=== PATIENT | female | born 1970 | race Caucasian/White ===

== ENCOUNTER 2019-04-17 10:58 | Inpatient (IN) | payer SELFPAY ==
--- NOTE | 2019-04-17 12:02 | RAD ---
EXAM: XR Elbow Rt 4 View STANDARD DATE: 04/17/2019 11:37 AM INDICATION: Right elbow pain COMPARISON: Right forearm radiograph dated April 17, 2019 FINDING: Patient's known radial neck fracture is not as well detailed on the current examination due to an overlying fiberglass splint. Radiocapitellar alignment appears within normal limits. IMPRESSION:Limited exam due to overlying fiberglass splint. Patient's previously demonstrated radial neck fracture is not as well detailed on the current study. Radiocapitellar alignment appears within normal limits.
--- NOTE | 2019-04-17 12:04 | RAD ---
EXAM: XR Wrist 3 Rt View STANDARD DATE: 04/17/2019 11:38 AM INDICATION: Right wrist fracture COMPARISON: Prior right forearm radiographs dated 04/17/2019 FINDING: Comminuted dorsally impacted distal radius fracture is unchanged in position. There is been interval placement of an overlying fiberglass splint. IMPRESSION:Comminuted, dorsally impacted, intra-articular distal radius fracture is unchanged in posi tion.
[2019-04-17] MEDS ORDERED: Morphine 4 MG/ML VIAL ONE (12:59)
[2019-04-17] MEDS ORDERED: Ondansetron PF 4 MG/2 ML Vial ONE ×2 (12:59→15:00)
[2019-04-17] MEDS ORDERED: hydrALAZINE 20 MG/ML VIAL SLOW IVP PRN (13:08)
[2019-04-17] MEDS ORDERED: HumaLOG 300 UNITS/3 ML VIAL SC PRN (13:08)
[2019-04-17] MEDS ORDERED: Dextrose 5% in Water 1,000 ML IV PRN (13:08)
[2019-04-17] MEDS ORDERED: Ondansetron ODT 4 MG TAB PO PRN (13:08)
[2019-04-17] MEDS ORDERED: Promethazine HCl 25 MG/ML VIAL IM PRN ×2 (13:08→17:37)
[2019-04-17] MEDS ORDERED: Dextrose 50% Abboject 50 ML SYRINGE SLOW IVP PRN (13:08)
[2019-04-17] MEDS ORDERED: traMADol HCl 50 MG TAB PO PRN (13:13)
[2019-04-17] MEDS ORDERED: traMADol HCl 50 MG TAB PO SCH (13:15)
[2019-04-17] MEDS ORDERED: Cyclobenzaprine 10 MG TAB PO SCH (13:15)
[2019-04-17] MEDS ORDERED: Acetaminophen 500 MG TAB PO SCH (13:15)
--- NOTE | 2019-04-17 13:37 | RAD ---
PORTABLE CHEST: Date: 04/17/19 HISTORY: Preop. FINDINGS: Lungs are clear. Heart and mediastinum appear normal. Vascular markings normal. IMPRESSION: Unremarkable chest. POS: [facility]
[2019-04-17 13:58] LABS: #Eosinphils 0.1 thou/uL (0.0-0.7); #Lymphocytes 1.5 thou/uL (1.20-3.40); #Monocytes 0.4 thou/uL (0.11-0.59); #Neutrophils 8.6 thou/uL (1.40-6.50); %Basophils 0.3 % (0.0-1.0); %Eosinophils 0.7 % (0.0-10.0); %Monocytes 3.9 % (0.0-10.0); %Neutrophils 81.1 % (42.0-75.0); Hemoglobin 12.6 g/dL (12.0-16.0); Mean Corpuscular HGB CONC 34.9 g/dL (32.0-36.0); Mean Corpuscular Volume 88.8 fL (78.0-98.0); Mean Platelet Volume 9.5 fL (7.4-10.4); Platelet Count 173 thou/uL (130-400); Red Blood Cell (RBC) Count 4.06 mill/uL (4.20-5.40); White Blood Cell (WBC) Count 10.5 thou/uL (4.8-10.8)
[2019-04-17] MEDS ORDERED: Ibuprofen 600 MG TAB PO SCH (14:00)
[2019-04-17 14:04] LABS: PTT 28.6 SEC (22.9-36.1); Prothrombin Time 13.1 SEC (12.0-14.7)
[2019-04-17 14:19] LABS: ALT (SGPT) 33 U/L (8-55); AST (SGOT) 26 U/L (5-34); Albumin 4.2 g/dL (3.5-5.0); Alkaline Phosphatase 86 U/L (40-150); Anion Gap 12 mmol/L (10-20); BUN (Urea Nitrogen) 11 mg/dL (7.0-18.7); Bilirubin, Total 0.4 mg/dL (0.2-1.2); Calc. Creatinine Clearance 0 mL/min (70-130); Calcium 9.3 mg/dL (7.8-10.44); Carbon Dioxide 23 mmol/L (22-29); Chloride 106 mmol/L (98-107); Estimated GFR-MDRD 85; Globulin 2.5 g/dL (2.4-3.5); Glucose 98 mg/dL (70-105); Potassium 3.8 mmol/L (3.5-5.1); Protein, Total 6.7 g/dL (6.0-8.3); Sodium 137 mmol/L (136-145)
[2019-04-17] MEDS ORDERED: Ketorolac Tromethamine 30 MG/ML VIAL ONE (15:00)
[2019-04-17] MEDS ORDERED: diphenhydrAMINE 50 MG/ML VIAL ONE (15:00)
[2019-04-17] MEDS ORDERED: Lidocaine 2% PF 5 ML VIAL ONE (15:00)
[2019-04-17] MEDS ORDERED: PHENYLEPHRINE-NS 100 MCG/ML 10 ML SYRINGE ONE (15:00)
[2019-04-17] MEDS ORDERED: PROPOFOL 200 MG/20 ML VIAL ONE (15:00)
[2019-04-17] MEDS ORDERED: Morphine 2 MG/ML SYRINGE ONE (15:26)
[2019-04-17] MEDS ORDERED: Midazolam HCl 2 mg/2 ml Vial ONE ×2 (15:26→15:27)
[2019-04-17] MEDS ORDERED: Fentanyl 100 MCG/2 ML VIAL ONE (15:27)
[2019-04-17] MEDS ORDERED: Neomycin-Polymyxin 1 ML AMP ONE (16:09)
[2019-04-17] MEDS ORDERED: Bupivacaine HCl 0.5%/Epinephrine 1:200,000/PF 30 ml Vial ONE (16:39)
--- NOTE | 2019-04-17 17:31 | RAD ---
Intraoperative, fluoroscopic imaging, right elbow, 2 views CLINICAL HISTORY: Surgical evaluation of elbow fracture FINDINGS: Magnified intraoperative fluoroscopic imaging reveals grossly stable alignment of the previ ously mentioned slightly angulated radial neck fracture. IMPRESSION: Intraoperative fluoroscopic imaging for evaluation of right radial fracture.
[2019-04-17] MEDS ORDERED: Promethazine HCl 25 MG/ML VIAL SLOW IVP PRN (17:37)
[2019-04-17] MEDS ORDERED: Meperidine HCl/PF 25 MG/ML VIAL SLOW IVP PRN (17:37)
[2019-04-17] MEDS ORDERED: Ondansetron HCl/PF 4 MG/2 ML Vial IVP PRN (17:37)
--- NOTE | 2019-04-17 17:59 | RAD ---
RIGHT WRIST THREE VIEWS: 04/17/19 INDICATION: Interval ORIF of right wrist. COMPARISON: Prior exam dated 04/17/19. FINDINGS: Since the comparison examination there has been interval placement of a low profile locked plate and screw construct fixating the intra-articular distal radius fracture. Fracture alignment is near anato ruchi. Instrumentation projects in the expected position without gross evidence of complication. IMPRESSION: ORIF of right wrist fracture. POS: [facility]
--- NOTE | 2019-04-17 18:05 | HP ---
HISTORY OF PRESENT ILLNESS: The patient presents to the ER after a fall and pain of right wrist. The patient states that she was on a the back of her truck , and she was trying to reach a tree. The branch of the tree was broken, she fell down on the right wrist. She did not hit her head. No LOC. No other injury reported. PAST MEDICAL HISTORY: No known medical history. PAST SURGICAL HISTORY: Tubal ligation in 2005. SOCIAL HISTORY: Smoking none. Alcohol none. Drug use none. ALLERGIES: NO KNOWN ALLERGIES. Last meal at 7 am PHYSICAL EXAMINATION: GENERAL: The patient is alert and awake. No signs of distress. SKIN: Warm and pink. VITAL SIGNS: Stable. Blood pressure 120/80, heart rate 80, O2 saturation 98%, respiratory rate 16. LUNGS: Clear bilaterally. HEART: Regular rate and rhythm. ABDOMEN : Soft, nondistended, no rebound. EXTREMITIES: Upper extremity, right wrist was on splint. Pain is well controlled. Left arm range of motion is normal. Both lower extremities range of motion is normal. There are no obvious injury, but no pain to touch. Normal alignment. NEUROLOGIC: No neurologic deficits. DIAGNOSES: Right closed distal radial fracture,comminuted. PLAN: Dr. Coley plan to do open reduction and internal fixation of the right wrist today. Job ID: [id number] [facility]
[2019-04-17] MEDS ORDERED: Senokot S 8.6-50 MG TAB PO SCH (21:00)
[2019-04-17] MEDS ORDERED: Famotidine 20 MG TAB PO SCH (21:00)
--- NOTE | 2019-04-18 00:29 | OP ---
DATE OF PROCEDURE: 04/17/2019 PREOPERATIVE DIAGNOSIS: Comminuted displaced intra-articular fracture of the right distal radius. POSTOPERATIVE DIAGNOSIS: Comminuted displaced intra-articular fracture of the right distal radius. PROCEDURE PERFORMED: Open reduction and internal fixation of right distal radius. ANESTHESIA: General. TECHNIQUE: The patient was given preoperative IV antibiotics, taken to operating room, and placed in supine position. Satisfactory general anesthesia was performed. The right upper extremity was sterilely prepped and draped in usual fashion. After exsanguination, tourniquet was raised to 220 mmHg over the right arm. A longitudinal incision was made over the volar aspect of the wrist over the flexor carpi radialis tendon. Blunt and sharp dissection was made. The flexor carpi radialis tendon was retracted ulnarly. The other soft tissue was retracted medially. Periosteal elevation was performed on the volar aspect of the distal radius. The fracture was reduced. Good reduction was verified with C-arm. A three-hole volar distal radius Synthes plate was then inserted using 2.7 cortical screw initially in the metaphysis, then five 2.4 locking screws distally and two 2.4 locking screws in the shaft. This was all performed under fluoroscopic visualization using C-arm. This verified good position of the plate and screws and good reduction of the fractures of the distal radius. The wound was then copiously irrigated with antibiotic solution and was closed using 2-0 Vicryl for the fat and subcutaneous tissue and the skin was closed with 3-0 Rapide. The wound was then infiltrated with 20 mL of 0.5% Marcaine with epinephrine. Sterile dressing was applied along with a 3-inch Ortho-Glass splint. The tourniquet was then released. The C-arm was also used to examine the right elbow and proximal forearm for making sure there were no acute fractures and there were not. There were no arthritic changes in the right elbow. No bony abnormalities and no acute fractures. The patient was then awakened, extubated, and transferred to recovery room in stable condition. ESTIMATED BLOOD LOSS: Minimal. COMPLICATIONS: None. DISCHARGE MEDICATION: Tylenol No. 4 one every 4 to 6 hours as needed for pain, #40 with one refill. TOURNIQUET TIME: 40 minutes. Job ID: [id number]
[2019-04-18] MEDS ORDERED: Polyethylene Glycol 3350 17 GM Packet PO SCH (09:00)
[2019-04-18] MEDS ORDERED: Enoxaparin Sodium 40 MG/0.4 ML SYRINGE SC SCH (21:00)
--- NOTE | 2019-04-19 11:47 | PRG ---
DATE OF SERVICE: 04/17/2019 SUBJECTIVE: The patient is __48 years old female who was coming for evaluation of _left wrist pain after a fall. Patient was diagnosis with left distal radial fracture . How is the patient doing today? Overnight event: __no Ambulation: ___yes Nausea/vomiting: ___no Pain: no Fever: ___no Shortness of breath: __no Having bowel movement: ___no OBJECTIVE: VITAL SIGNS: Current temperature: ___98 Current heart rate: ____88 Current blood pressure: 120/80 Current respiratory rate: __14 Current O2 saturation: ____98 PHYSICAL EXAMINATION: GENERAL: Well-appearing, alert, and awake, in no acute respiratory distress. HEENT: Normocephalic and atraumatic. RESPIRATORY: No respiratory distress. Lungs are clear to ausculation bilaterally. CARDIOVASCULAR: Regular rate and rhythm. ABDOMEN: Abdomen is soft, nontender, and nondistended. No deformity. Rebound and guarding, negative. EXTREMITIES: Warm and well perfused. NEUROLOGIC: Intact neurologically. Oriented x3. IMAGING RESULTS: No new imaging to be reviewed. ASSESSMENT: Status post fall L distal radial fracture PLAN: ORIF L distal radial fracture Job ID: [id number] [facility]
== END 2019-04-19 19:10 | disposition home or self-care (01) | DRG 512 ==
LOC: ERS 10:58 → SDC 14:27 → SURG B 19:21 → SURG A 20:50
PROVIDERS: ADMIT Orthopaedic Surgery; ATTEND Orthopaedic Surgery
PROC: 0PSH04Z Reposition Right Radius with Internal Fixation Device, Open Approach (ICD-10-PCS; principal; 2019-04-17)
DX: S52.571A Other intraarticular fracture of lower end of right radius, initial encounter for closed fracture (principal); W17.89XA Other fall from one level to another, initial encounter; Z98.51 Tubal ligation status; Y92.9 Unspecified place or not applicable
CPT/HCPCS: 71045; 76000; 80053; 85025; 85610; 85730; 86850; 86900; 86901; 93005; 96374; 96375; C1713; J0131; J0670; J0690; J1200; J1885; J2001; J2250; J2270; J2405; J2704; J3010